=== PATIENT | male | born 1965 | race Two or more races ===

== ENCOUNTER 2021-03-29 12:13 | Emergency (ER) | payer OTHER ==
[~2021-03-29] VITALS: Ht 175.3 cm; Wt 86.2 kg
[2021-03-29] MEDS ORDERED: ALBUTEROL2.5 MG/3 M IH (12:29)
[2021-03-29] MEDS ORDERED: PROAIR HFA8.5 GM IH (12:29)
[2021-03-29] MEDS ORDERED: AZITHROMYCIN250 MG PO (12:29)
== END 2021-03-29 17:58 | disposition home or self-care (01) ==
LOC: ER 12:13
DX: B34.9 Viral infection, unspecified (principal); Z11.52 Encounter for screening for COVID-19